=== PATIENT | male | born 1950 | race Caucasian/White ===

== ENCOUNTER 2019-12-15 14:14 | Inpatient (IN) | payer OTHER ==
[2019-12-15 19:33] VITALS: BMI 32.8
--- NOTE | 2019-12-15 20:26 | HP ---
COWS - Scale Resting Pulse: 1= [place] 81-100 Sweatin=Flushed/Facial Moisture Restless Observation: 1= Difficult to Sit Still Pupil Size: 1= Pupils >than Normal Bone or Joint Aches: 4=Acute Joint/Muscle Pain Runny Nose/ Eye Tearin= Nasal Congestion GI Upset > 30mins: 3= Vomiting/Diarrhea (vomitingg x 1, diarrhea x 2) Tremor Observation: 2= Slight Tremor Visible Yawning Observation: 1= 1-2x During Session Anxiety or Irritability: 2=Irritable/Anxious Goose Flesh Skin: 0=Smooth Skin COWS Score: 18 CIWA Score - Admission Criteria OASAS Guidelines: Admission for Medically Managed Detox: Requires at least one of the followin. CIWA greater than 12 2. Seizures within the past 24 hours 3. Delirium tremens within the past 24 hours 4. Hallucinations within the past 24 hours 5. Acute intervention needed for co occurring medical disorder 6. Acute intervention needed for co occurring psychiatric disorder 7. Severe withdrawal that cannot be handled at a lower level of care (continued vomiting, continued diarrhea, abnormal vital signs) requiring intravenous medication and/or fluids 8. Admitting History and Physical - Smoking History Smoking history: Former smoker Have you smoked in the past 12 months: No Admission ROS [facility] Chief Complaint: Heroin withdrawal symptoms Allergies/Adverse Reactions: Allergies Allergy/AdvReac Type Severity Reaction Status Date / Time No Known Allergies Allergy Verified 12/15/19 20:03 History of Present Illness: 69 years old male with 50 years of heroin dependence is seeking admission to detox. This is his first admission to [facility] and patient reports prior detoxifications, last at [facility]. He has medical history of bladder stone, hypertension, Hep C (treated), BPH and psych. history of anxiety and depression. He denies suicidal ideation at this time. He reports that overdosed in May 2019. Patient is retired, lives in an apartment with his girlfriend and denies legal issues. Confidential Drug Utilization Report Search Terms: catherinechristiana Beckett, 1950Search Date: 12/15/2019 20:22:27 PM The Drug Utilization Report below displays all of the controlled substance presc riptions, if any, that your patient has filled in the last twelve months. The information displayed on this report is compiled from pharmacy submissions to the Department, and accurately reflects the information as submitted by the pharmacies. Others' Prescriptions Patient Name: Catherine Hammond Date: 1950 Address: [address] [place] [id number]: Female Rx Written Rx Dispensed Drug Quantity Days Supply Prescriber Name Payment Method Dispenser 11/30/2019 12/01/2019 clonazepam 1 mg tablet 60 30 Luis Dallas () Insurance [facility] 11/29/2019 11/29/2019 clonazepam 0.5 mg tablet 60 30 Luis Dallas) [facility] * - Drugs marked with an asterisk are compound drugs. If the compound drug is made up of more than one controlled substance, then each controlled substance will be a separate row in the table. Exam Limitations: No Limitations - Ebola screening Have you traveled outside of the country in the last 21 days: No Have you had contact with anyone from an Ebola affected area: No Have you been sick,other than usual withdrawal symptoms: No Do you have a fever: No - Review of Systems Constitutional: Chills, Malaise, Night Sweats, Changes in sleep EENT: reports: No Symptoms Reported Respiratory: reports: No Symptoms reported Cardiac: reports: No Symptoms Reported GI: reports: Diarrhea, Poor Appetite, Poor Fluid Intake, Vomiting, Abdominal cramping : reports: No Symptoms Reported Musculoskeletal: reports: No Symptoms Reported Integumentary: reports: No Symptoms Reported Neuro: reports: Headache, Tremors Endocrine: reports: No Symptoms Reported Hematology: reports: No Symptoms Reported Psychiatric: reports: Mood/Affect Appropiate, Orientated x3 Other Systems: Reviewed and Negative Patient History - Patient Medical History Hx Anemia: No Hx Asthma: No Hx Chronic Obstructive Pulmonary Disease (COPD): No Hx Cancer: No Hx Cardiac Disorders: No Hx Congestive Heart Failure: No Hx Hypertension: Yes (Losartan) Hx Hypercholesterolemia: No Hx Pacemaker: No HX Cerebrovascular Accident: No Hx Seizures: No Hx Dementia: No Hx Diabetes: No Hx Gastrointestinal Disorders: No Hx Liver Disease: No Hx Genitourinary Disorders: Yes (BPH) Hx Sexually Transmitted Disorders: No Hx Renal Disease (ESRD): No Hx Thyroid Disease: No Hx Human Immunodeficiency Virus (HIV): No (Negative 2017) Hx Hepatitis C: Yes (Treated ) Hx Depression: Yes Hx Suicide Attempt: No (Denies suicidal ideation at this time) Hx Bipolar Disorder: No Hx Schizophrenia: No - Patient Surgical History Past Surgical History: Yes Hx Neurologic Surgery: No Hx Cataract Extraction: No Hx Cardiac Surgery: No Hx Lung Surgery: No Hx Abdominal Surgery: No Hx Appendectomy: No Hx Cholecystectomy: No Hx Genitourinary Surgery: Yes Hx Section: No Hx Orthopedic Surgery: Yes (Back surgery 2009) Hx Hysterectomy: No Other Surgical History: Tonsillectomy as a child - PPD History Previous Implant?: Yes Implanted On Prior [facility] Admission?: No PPD to be Administered?: Yes - Reproductive History Patient is a Female of Child Bearing Age (11 -55 yrs old): No (male) - Smoking Cessation Smoking history: Former smoker Have you smoked in the past 12 months: No Hx Chewing Tobacco Use: No Initiated information on smoking cessation: No - Substance & Tx. History Hx Alcohol Use: No Hx Substance Use: Yes Substance Use Type: Heroin, Prescribed (Klonopin) Hx Substance Use [facility]: [facility] - Substances abused Heroin Substance route: Inhalation Frequency: Daily Amount used: 6 bags Age of first use: 19 Date of last use: 12/15/19 Admission Physical Exam S - Vital Signs Vital Signs: Vital Signs - 24 hr 12/15/19 19:12 Temperature 97.5 F L Pulse Rate 90 Respiratory 18 Rate Blood Pressure 108/75 - Physical General Appearance: Yes: Moderate Distress, Tremorous, Irritable, Anxious HEENTM: Yes: Within Normal Limits Respiratory: Yes: Lungs Clear, Normal Breath Sounds, No Respiratory Distress Neck: Yes: Within Normal Limits Breast: Yes: Breast Exam Deferred Cardiology: Yes: Tachycardia Abdominal: Yes: Normal Bowel Sounds, Protuberent Genitourinary: Yes: Within Normal Limits Back: Yes: Normal Inspection Musculoskeletal: Yes: Back pain, Muscle Pain Extremities: Yes: Tremors Neurological: Yes: Within Normal Limits, Alert, Normal Mood/Affect Integumentary: Yes: Warm Lymphatic: Yes: Within Normal Limits - Diagnostic (1) Opioid dependence, uncomplicated Current Visit: Yes Status: Acute (2) Hypertension Current Visit: Yes Status: Chronic Qualifiers: Hypertension type: unspecified Qualified Code(s): I10 - Essential (primary) hypertension (3) BPH (benign prostatic hyperplasia) Current Visit: Yes Status: Chronic Qualifiers: Lower urinary tract symptom presence: unspecified whether lower urinary tract symptoms present Qualified Code(s): N40.0 - Benign prostatic hyperplasia without lower urinary tract symptoms (4) Bladder stones Current Visit: Yes Status: Chronic (5) Depression Current Visit: Yes Status: Chronic Qualifiers: Depression Type: unspecified Qualified Code(s): F32.9 - Major depressive disorder, single episode, unspecified (6) Anxiety Current Visit: Yes Status: Chronic Cleared for Admission [facility] - Detox or Rehab [facility] Level of Care: Medically Managed Detox Regimen/Protocol: Methadone Claeared for Rehab Admission: No Breathalyzer - Breathalyzer Breathalyzer: 0 Urine Drug Screen - Test Device Lot number: [id number] Expiration date: 02/18/21 - Control Is test valid?: Yes - Results Drug screen NEGATIVE: No Urine drug screen results: MELANIE-Cocaine, FEN-Fentanyl, MOP-Opiates, BZO- Benzodiazepines Inpatient Rehab Admission - Rehab Decision to Admit Inpatient rehab admission?: No
[2019-12-15] MEDS ORDERED: cloNIDine HCL 0.1 MG TABLET PO PRN (20:57)
[2019-12-15] MEDS ORDERED: ONDANSETRON *ODT* 4 MG TABLET SL ONE (20:57)
[2019-12-15] MEDS ORDERED: BISMUTH SUBSALICYLATE 524 MG/30 ML UD PO PRN (20:57)
[2019-12-15] MEDS ORDERED: MAGNESIUM CITRATE 300 ML BOTTLE PO PRN (20:57)
[2019-12-15] MEDS ORDERED: MAG HYDROX/AL HYDROX/SIMETH 30 ML UNIT-DOSE CUP PO PRN (20:57)
[2019-12-15] MEDS ORDERED: MENTHOL/PHENOL 1 EACH UD MM PRN (20:57)
[2019-12-15] MEDS ORDERED: ACETAMINOPHEN 325 MG TABLET (FP) PO PRN ×2 (20:57)
[2019-12-15] MEDS ORDERED: MAGNESIUM HYDROX 2400MG/30ML ORAL SUSPENSION 30 ML CUP PO PRN (20:57)
[2019-12-15] MEDS ORDERED: METHADONE HCL 10 MG TABLET (FOR DETOX USE ONLY) PO ONE (21:30)
[2019-12-15] MEDS ORDERED: TUBERCULIN PPD 5 TU/0.1ML VIAL ID ONE (22:44)
[2019-12-15] MEDS: hydrOXYzine PAMOATE 25 MG CAPSULE (FP) PO PRN (22:49)
[2019-12-15] MEDS: THIAMINE HCL 100 MG TABLET (FP) PO SCH (22:49)
[2019-12-15] MEDS: MELATONIN 5 MG TABLETS PO SCH (22:56)
[2019-12-16] MEDS ORDERED: METHADONE HCL 5 MG TABLET (FOR DETOX USE ONLY) ONE (08:51)
[2019-12-16] MEDS ORDERED: METHADONE HCL 10 MG TABLET (FOR DETOX USE ONLY) ONE (08:51)
[2019-12-16 09:39] LABS: HEMATOCRIT 37.8 % (35.4-49); HEMOGLOBIN 12.6 GM/dL (11.7-16.9); MCH 29.1 pg (25.7-33.7); MCHC 33.3 g/dl (32.0-35.9); MEAN CELL VOLUME 87.3 fl (80-96); MEAN PLT VOLUME 8.3 fl (7.5-11.1); PLATELET COUNT 181 K/MM3 (134-434); RBC 4.33 M/mm3 (4.00-5.60); RDW 14.1 % (11.9-15.9); WHITE BLOOD COUNT 8.3 K/mm3 (4.0-10.0)
[2019-12-16 09:53] LABS: ALBUMIN 3.4 g/dl (3.4-5.0); BILIRUBIN,TOTAL 0.6 mg/dL (0.2-1); BLOOD UREA NITROGEN 31.5 mg/dL (7-18); CALCIUM 8.8 mg/dL (8.5-10.1); POTASSIUM 4.1 mmol/L (3.5-5.1); TOT PROT 6.4 g/dl (6.4-8.2)
[2019-12-16] MEDS ORDERED: METHADONE (DETOX) 20 MG, METHADONE (DETOX) 5 MG PO ONE (10:00)
[2019-12-16] MEDS ORDERED: PATIENT'S OWN MEDICATION (NON-FORMULARY) (Losartan/Hydrochlorothiazide [Losartan-Hctz 100- PO SCH (10:00)
[2019-12-16] MEDS: HYDROCHLOROTHIAZIDE 12.5 MG CAPSULE (FP) PO SCH (10:28)
[2019-12-16] MEDS: PRENATAL VITAMINS W/ FOLIC ACID TABLET (FP) PO SCH (10:28)
[2019-12-16] MEDS: hydrOXYzine PAMOATE 25 MG CAPSULE (FP) PO PRN ×3 (10:30→23:23)
[2019-12-16] MEDS: LOSARTAN POTASSIUM 50 MG TABLET (FP) PO SCH (10:49)
--- NOTE | 2019-12-16 12:24 | CONSULT ---
[facility] Psychiatric Consult - Data Date of interview: 12/16/19 Admission source: [facility] Identifying data: Patient is a 69 year old single male, father of one, unemployed, domiciled, and is supported with SSI benefits. This is patient's first admission to detox at [facility]. Patient admitted to for opioid dependence. Substance Abuse History: Smoking Cessation. Smoking history: Former smoker. Have you smoked in the past 12 months: No. Hx Chewing Tobacco Use: No. Initiated information on smoking cessation: No. - Substance & Tx. History. Hx Alcohol Use: No. Hx Substance Use: Yes. Substance Use Type: Heroin, Prescribed (Klonopin). Hx Substance Use Treatment: Yes ([facility]). - Substances abused. Heroin. Substance route: Inhalation. Frequency: Daily. Amount used: 6 bags. Age of first use: 19. Date of last use: 12/15/19 Medical History: hypertension, BPH, Hep C (treated) Psychiatric History: Patient denies history of psychiatric hospitalization, outpatient psychiatric care, and suicide attempt. Patient states that he is receiving klonopin from his PCP. At present patient reports stable mood. Physical/Sexual Abuse/Trauma History: denies. Mental Status Exam - Mental Status Exam Alert and Oriented to: Time, Place, Person Cognitive Function: Good Patient Appearance: Well Groomed Mood: Hopeful Affect: Appropriate Patient Behavior: Appropriate, Cooperative Speech Pattern: Appropriate Voice Loudness: Normal Thought Process: Goal Oriented Thought Disorder: Not Present Hallucinations: Denies Suicidal Ideation: Denies Homicidal Ideation: Denies Insight/Judgement: Poor Sleep: Fair Appetite: Fair Muscle strength/Tone: Normal Gait/Station: Other (Gait not observed.) Psychiatric Findings - Problem List ([place] 1, 2,3) (1) Opioid dependence, uncomplicated Current Visit: Yes Status: Acute - Initial Treatment Plan Initial Treatment Plan: Psychoeducation provided. Detoxification in progress. Vistaril 25mg q4h ordered by admitting provider. Observation.
[2019-12-16] MEDS: IBUPROFEN 400 MG TABLET (FP) PO PRN ×2 (12:48→19:16)
--- NOTE | 2019-12-16 13:40 | PN ---
S COWS - Scale Resting Pulse: 0= [place] 80 or Below Sweatin= Beads of Sweat on Face Restless Observation: 1= Difficult to Sit Still Pupil Size: 0= Normal to Room Light Bone or Joint Aches: 2= Severe Diffuse Aches Runny Nose/ Eye Tearin= None GI Upset > 30mins: 0= None Tremor Observation of Outstretched Hands: 2= Slight Tremor Visible Yawning Observation: 1= 1-2x During Session Anxiety or Irritability: 2=Irritable/Anxious Goose Flesh Skin: 0=Smooth Skin COWS Score: 11 S Progress Note (SOAP) Subjective: c/o sweats, shakes, anxiety, and muscle aches. Objective: 12/16/19 13:40 Vital Signs 12/16/19 12/16/19 07:00 09:41 Temperature 97.7 F 98.1 F Pulse Rate 66 75 Respiratory 18 18 Rate Blood Pressure 107/72 109/64 O2 Sat by Pulse 96 Oximetry (%) Laboratory Last Values WBC 8.3 K/mm3 (4.0-10.0) 12/16/19 07:25 RBC 4.33 M/mm3 (4.00-5.60) 12/16/19 07:25 Hgb 12.6 GM/dL (11.7-16.9) 12/16/19 07:25 Hct 37.8 % (35.4-49) 12/16/19 07:25 MCV 87.3 fl (80-96) 12/16/19 07:25 MCH 29.1 pg (25.7-33.7) 12/16/19 07:25 MCHC 33.3 g/dl (32.0-35.9) 12/16/19 07:25 RDW 14.1 % (11.9-15.9) 12/16/19 07:25 Plt Count 181 K/MM3 (134-434) 12/16/19 07:25 MPV 8.3 fl (7.5-11.1) 12/16/19 07:25 Sodium 140 mmol/L (136-145) 12/16/19 07:35 Potassium 4.1 mmol/L (3.5-5.1) 12/16/19 07:35 Chloride 105 mmol/L (98-107) 12/16/19 07:35 Carbon Dioxide 28 mmol/L (21-32) 12/16/19 07:35 Anion Gap 8 MMOL/L (8-16) 12/16/19 07:35 BUN 31.5 mg/dL (7-18) H 12/16/19 07:35 Creatinine 1.0 mg/dL (0.55-1.3) 12/16/19 07:35 Est GFR (CKD-EPI)AfAm 87.37 12/16/19 07:35 Est GFR (CKD-EPI)NonAf 75.39 12/16/19 07:35 Random Glucose 104 mg/dL (74-106) 12/16/19 07:35 Calcium 8.8 mg/dL (8.5-10.1) 12/16/19 07:35 Total Bilirubin 0.6 mg/dL (0.2-1) 12/16/19 07:35 AST 17 U/L (15-37) 12/16/19 07:35 ALT 32 U/L (13-61) 12/16/19 07:35 Alkaline Phosphatase 61 U/L (45-117) 12/16/19 07:35 Total Protein 6.4 g/dl (6.4-8.2) 12/16/19 07:35 Albumin 3.4 g/dl (3.4-5.0) 12/16/19 07:35 Syphilis Serology Non-reactive (NONREACTIVE) 12/16/19 07:35 Labs noted. Assessment: 12/16/19 13:41 AOX3, in no acute respiratory distress. Full ROM, ambulating in the unit. Withdrawal symptoms. covid-19 test result pending. 12/16/19 13:42 12/16/19 13:43 Plan: continue detox.
--- NOTE | 2019-12-16 13:56 | EKG ---
Test Reason : Blood Pressure : / mmHG Vent. Rate : 063 BPM Atrial Rate : 063 BPM P-R Int : 174 ms QRS Dur : 110 ms QT Int : 452 ms P-R-T Axes : 061 016 035 degrees QTc Int : 462 ms NORMAL SINUS RHYTHM INCOMPLETE RIGHT BUNDLE BRANCH BLOCK POSSIBLE POSTERIOR INFARCT ABNORMAL ECG Confirmed by MD DARWIN, EMETERIO ([id number]) on 12/16/2019 1:56:25 PM Referred By: Confirmed By:EMETERIO GRANADOS MD
[2019-12-16] MEDS: MELATONIN 5 MG TABLETS PO SCH (22:33)
[2019-12-16] MEDS: THIAMINE HCL 100 MG TABLET (FP) PO SCH (22:34)
[2019-12-17] MEDS: hydrOXYzine PAMOATE 25 MG CAPSULE (FP) PO PRN ×5 (06:26→22:23)
[2019-12-17] MEDS: PRENATAL VITAMINS W/ FOLIC ACID TABLET (FP) PO SCH (09:25)
[2019-12-17] MEDS ORDERED: METHADONE HCL 10 MG TABLET (FOR DETOX USE ONLY) PO ONE (10:00)
[2019-12-17] MEDS: HYDROCHLOROTHIAZIDE 12.5 MG CAPSULE (FP) PO SCH (10:25)
[2019-12-17] MEDS: LOSARTAN POTASSIUM 50 MG TABLET (FP) PO SCH (10:25)
--- NOTE | 2019-12-17 16:31 | PN ---
BHS COWS - Scale Resting Pulse: 0= [place] 80 or Below Sweatin= Chills/Flushing Restless Observation: 0= Sits Still Pupil Size: 0= Normal to Room Light Bone or Joint Aches: 1= Mild Discomfort Runny Nose/ Eye Tearin= Runny Nose/Eyes GI Upset > 30mins: 2= Nausea/Diarrhea Tremor Observation of Outstretched Hands: 2= Slight Tremor Visible Yawning Observation: 0= None Anxiety or Irritability: 1=Feels Anxious/Irritable Goose Flesh Skin: 0=Smooth Skin COWS Score: 9 BHS Progress Note (SOAP) Subjective: Chills, runny nose Objective: 12/17/19 16:30 Last Vital Signs Temp Pulse Resp BP Pulse Ox 98.0 F 71 20 116/72 95 12/17/19 14:19 12/17/19 14:19 12/17/19 14:19 12/17/19 14:19 12/17/19 09:25 Laboratory Tests 12/15/19 12/16/19 12/16/19 22:00 07:25 07:35 WBC 8.3 RBC 4.33 Hgb 12.6 Hct 37.8 MCV 87.3 MCH 29.1 MCHC 33.3 RDW 14.1 Plt Count 181 MPV 8.3 Sodium Potassium Chloride Carbon Dioxide Anion Gap BUN Creatinine Est GFR (CKD-EPI)AfAm Est GFR (CKD-EPI)NonAf Random Glucose Calcium Total Bilirubin AST ALT Alkaline Phosphatase Total Protein Albumin Syphilis Serology Non-reactive COVID-19 (ROSANNA) Not detected 12/16/19 07:35 WBC RBC Hgb Hct MCV MCH MCHC RDW Plt Count MPV Sodium 140 Potassium 4.1 Chloride 105 Carbon Dioxide 28 Anion Gap 8 BUN 31.5 H Creatinine 1.0 Est GFR (CKD-EPI)AfAm 87.37 Est GFR (CKD-EPI)NonAf 75.39 Random Glucose 104 Calcium 8.8 Total Bilirubin 0.6 AST 17 ALT 32 Alkaline Phosphatase 61 Total Protein 6.4 Albumin 3.4 Syphilis Serology COVID-19 (ROSANNA) Labs reviewed: bun 31.5 (high) Assessment: 12/17/19 16:30 Withdrawal sxs Noted with azotemia Plan: Continue detox Azotemia: encourage PO water hydration
[2019-12-17] MEDS: THIAMINE HCL 100 MG TABLET (FP) PO SCH (22:23)
[2019-12-17] MEDS: MELATONIN 5 MG TABLETS PO SCH (22:23)
[2019-12-17] MEDS: METHOCARBAMOL 500 MG TABLET PO PRN (22:23)
[2019-12-18] MEDS ORDERED: METHADONE HCL 10 MG TABLET (FOR DETOX USE ONLY) ONE (09:48)
[2019-12-18] MEDS ORDERED: METHADONE HCL 5 MG TABLET (FOR DETOX USE ONLY) ONE (09:48)
[2019-12-18] MEDS ORDERED: METHADONE (DETOX) 10 MG, METHADONE (DETOX) 5 MG PO ONE (10:00)
[2019-12-18] MEDS: HYDROCHLOROTHIAZIDE 12.5 MG CAPSULE (FP) PO SCH (10:28)
[2019-12-18] MEDS: PRENATAL VITAMINS W/ FOLIC ACID TABLET (FP) PO SCH (10:29)
[2019-12-18] MEDS: LOSARTAN POTASSIUM 50 MG TABLET (FP) PO SCH (10:29)
[2019-12-18] MEDS: hydrOXYzine PAMOATE 25 MG CAPSULE (FP) PO PRN ×3 (10:30→19:25)
[2019-12-18] MEDS: METHOCARBAMOL 500 MG TABLET PO PRN (10:32)
--- NOTE | 2019-12-18 14:40 | PN ---
BHS COWS - Scale Resting Pulse: 0= [place] 80 or Below Sweatin= Chills/Flushing Restless Observation: 0= Sits Still Pupil Size: 0= Normal to Room Light Bone or Joint Aches: 4=Acute Joint/Muscle Pain Runny Nose/ Eye Tearin= None GI Upset > 30mins: 0= None Tremor Observation of Outstretched Hands: 1= Tremor [place], Not Seen Yawning Observation: 0= None Anxiety or Irritability: 2=Irritable/Anxious Goose Flesh Skin: 0=Smooth Skin COWS Score: 8 BHS Progress Note (SOAP) Subjective: anxiety chills body ache fatigiue Objective: 12/18/19 14:43 Vital Signs 12/18/19 12:32 Temperature 97.8 F Pulse Rate 72 Respiratory 18 Rate Blood Pressure 109/69 O2 Sat by Pulse 96 Oximetry (%) Laboratory Tests 12/15/19 12/16/19 12/16/19 22:00 07:25 07:35 WBC 8.3 RBC 4.33 Hgb 12.6 Hct 37.8 MCV 87.3 MCH 29.1 MCHC 33.3 RDW 14.1 Plt Count 181 MPV 8.3 Sodium Potassium Chloride Carbon Dioxide Anion Gap BUN Creatinine Est GFR (CKD-EPI)AfAm Est GFR (CKD-EPI)NonAf Random Glucose Calcium Total Bilirubin AST ALT Alkaline Phosphatase Total Protein Albumin Syphilis Serology Non-reactive COVID-19 (ROSANNA) Not detected 12/16/19 07:35 WBC RBC Hgb Hct MCV MCH MCHC RDW Plt Count MPV Sodium 140 Potassium 4.1 Chloride 105 Carbon Dioxide 28 Anion Gap 8 BUN 31.5 H Creatinine 1.0 Est GFR (CKD-EPI)AfAm 87.37 Est GFR (CKD-EPI)NonAf 75.39 Random Glucose 104 Calcium 8.8 Total Bilirubin 0.6 AST 17 ALT 32 Alkaline Phosphatase 61 Total Protein 6.4 Albumin 3.4 Syphilis Serology COVID-19 (ROSANNA) covid-19 not detected Assessment: 12/18/19 14:44 withdrawal sx Plan: cont detox increase po fluids maintain safety
[2019-12-18 20:09] LABS: URINE APPEARANCE CLEAR; URINE BILIRUBIN NEGATIVE (NEGATIVE); URINE COLOR YELLOW; URINE GLUCOSE (UA) NEGATIVE (NEGATIVE); URINE KETONE NEGATIVE (NEGATIVE); URINE LEUK ESTERASE NEGATIVE (NEGATIVE); URINE NITRITE NEGATIVE (NEGATIVE); URINE PROTEIN NEGATIVE (NEGATIVE); URINE UROBILINOGEN 0.2 mg/dL (0.2-1.0)
[2019-12-18] MEDS: THIAMINE HCL 100 MG TABLET (FP) PO SCH (21:35)
[2019-12-18] MEDS: MELATONIN 5 MG TABLETS PO SCH (21:35)
[2019-12-19] MEDS: hydrOXYzine PAMOATE 25 MG CAPSULE (FP) PO PRN ×3 (06:21→19:36)
[2019-12-19] MEDS ORDERED: METHADONE HCL 10 MG TABLET (FOR DETOX USE ONLY) PO ONE (10:00)
[2019-12-19] MEDS: PRENATAL VITAMINS W/ FOLIC ACID TABLET (FP) PO SCH (10:27)
[2019-12-19] MEDS: HYDROCHLOROTHIAZIDE 12.5 MG CAPSULE (FP) PO SCH (10:28)
[2019-12-19] MEDS: LOSARTAN POTASSIUM 50 MG TABLET (FP) PO SCH (10:28)
[2019-12-19] MEDS: IBUPROFEN 400 MG TABLET (FP) PO PRN (11:27)
--- NOTE | 2019-12-19 11:53 | PN ---
BHS COWS - Scale Resting Pulse: 0= [place] 80 or Below Sweatin= Streaming Sweat Restless Observation: 0= Sits Still Pupil Size: 0= Normal to Room Light Bone or Joint Aches: 4=Acute Joint/Muscle Pain Runny Nose/ Eye Tearin= None GI Upset > 30mins: 0= None Tremor Observation of Outstretched Hands: 1= Tremor [place], Not Seen Yawning Observation: 0= None Anxiety or Irritability: 1=Feels Anxious/Irritable Goose Flesh Skin: 0=Smooth Skin COWS Score: 10 BHS Progress Note (SOAP) Subjective: pt c/o chills intermittent sleep body aches Objective: 12/19/19 11:55 Vital Signs 12/19/19 12/19/19 05:46 11:23 Temperature 97.5 F L 97.5 F L Pulse Rate 65 73 Respiratory 18 Rate Blood Pressure 117/76 134/85 O2 Sat by Pulse 97 96 Oximetry (%) Laboratory Tests 12/15/19 12/16/19 12/16/19 22:00 07:25 07:35 WBC 8.3 RBC 4.33 Hgb 12.6 Hct 37.8 MCV 87.3 MCH 29.1 MCHC 33.3 RDW 14.1 Plt Count 181 MPV 8.3 Sodium Potassium Chloride Carbon Dioxide Anion Gap BUN Creatinine Est GFR (CKD-EPI)AfAm Est GFR (CKD-EPI)NonAf Random Glucose Calcium Total Bilirubin AST ALT Alkaline Phosphatase Total Protein Albumin Urine Color Urine Appearance Urine pH Ur Specific [place] Urine Protein Urine Glucose (UA) Urine Ketones Urine Blood Urine Nitrite Urine Bilirubin Urine Urobilinogen Ur Leukocyte Esterase Syphilis Serology Non-reactive COVID-19 (ROSANNA) Not detected 12/16/19 12/18/19 07:35 15:06 WBC RBC Hgb Hct MCV MCH MCHC RDW Plt Count MPV Sodium 140 Potassium 4.1 Chloride 105 Carbon Dioxide 28 Anion Gap 8 BUN 31.5 H Creatinine 1.0 Est GFR (CKD-EPI)AfAm 87.37 Est GFR (CKD-EPI)NonAf 75.39 Random Glucose 104 Calcium 8.8 Total Bilirubin 0.6 AST 17 ALT 32 Alkaline Phosphatase 61 Total Protein 6.4 Albumin 3.4 Urine Color Yellow Urine Appearance Clear Urine pH 7.0 Ur Specific [place] 1.014 Urine Protein Negative Urine Glucose (UA) Negative Urine Ketones Negative Urine Blood Negative Urine Nitrite Negative Urine Bilirubin Negative Urine Urobilinogen 0.2 Ur Leukocyte Esterase Negative Syphilis Serology COVID-19 (ROSANNA) covid-19 not detected Assessment: 12/19/19 11:56 withdrawal sx alert o x 3 nad oob ambulating but slow steady gait. Plan: cont detox increase po fluids maintain safety
[2019-12-19] MEDS: diazePAM 5 MG TABLET PO PRN ×3 (15:09→23:27)
[2019-12-19] MEDS: THIAMINE HCL 100 MG TABLET (FP) PO SCH (21:54)
[2019-12-19] MEDS: MELATONIN 5 MG TABLETS PO SCH (21:54)
[2019-12-20] MEDS ORDERED: METHADONE HCL 5 MG TABLET (FOR DETOX USE ONLY) PO ONE (06:00)
[2019-12-20] MEDS: diazePAM 5 MG TABLET PO PRN ×2 (06:10→10:05)
[2019-12-20] MEDS: hydrOXYzine PAMOATE 25 MG CAPSULE (FP) PO PRN (08:30)
--- NOTE | 2019-12-20 09:07 | DS ---
[facility] Detox Discharge Summary Admission Date: 12/15/19 Discharge Date: 12/20/19 - History Present History: Opioid Dependence Additional Comments: Pt has a PCP DR. Aguila Ford at [place], [place] to follow up with medical management. . Pertinent Past History: HTN BPH Bladder stones Depression Anxiety disorder - Physical Exam Results Vital Signs: Vital Signs Temperature 97.7 F 12/20/19 06:35 Pulse Rate 64 12/20/19 06:35 Respiratory Rate 16 12/20/19 06:35 Blood Pressure 139/89 12/20/19 06:35 O2 Sat by Pulse Oximetry (%) 95 12/20/19 06:35 Alert o x 3, but anxious nad oob ambulating with steady gait cardiac:s1 s2,rrr lungs:ctab abdomen;soft,+bs,nt,nd extremities:no edema,skin intact,normal color/tugor Pertinent Admission Physical Exam Findings: Laboratory Tests 12/15/19 12/16/19 12/16/19 22:00 07:25 07:35 WBC 8.3 RBC 4.33 Hgb 12.6 Hct 37.8 MCV 87.3 MCH 29.1 MCHC 33.3 RDW 14.1 Plt Count 181 MPV 8.3 Sodium Potassium Chloride Carbon Dioxide Anion Gap BUN Creatinine Est GFR (CKD-EPI)AfAm Est GFR (CKD-EPI)NonAf Random Glucose Calcium Total Bilirubin AST ALT Alkaline Phosphatase Total Protein Albumin Urine Color Urine Appearance Urine pH Ur Specific [place] Urine Protein Urine Glucose (UA) Urine Ketones Urine Blood Urine Nitrite Urine Bilirubin Urine Urobilinogen Ur Leukocyte Esterase Syphilis Serology Non-reactive COVID-19 (ROSANNA) Not detected 12/16/19 12/18/19 07:35 15:06 WBC RBC Hgb Hct MCV MCH MCHC RDW Plt Count MPV Sodium 140 Potassium 4.1 Chloride 105 Carbon Dioxide 28 Anion Gap 8 BUN 31.5 H Creatinine 1.0 Est GFR (CKD-EPI)AfAm 87.37 Est GFR (CKD-EPI)NonAf 75.39 Random Glucose 104 Calcium 8.8 Total Bilirubin 0.6 AST 17 ALT 32 Alkaline Phosphatase 61 Total Protein 6.4 Albumin 3.4 Urine Color Yellow Urine Appearance Clear Urine pH 7.0 Ur Specific [place] 1.014 Urine Protein Negative Urine Glucose (UA) Negative Urine Ketones Negative Urine Blood Negative Urine Nitrite Negative Urine Bilirubin Negative Urine Urobilinogen 0.2 Ur Leukocyte Esterase Negative Syphilis Serology COVID-19 (ROSANNA) - Treatment Hospital Course: Detox Protocol Followed, Detoxed Safely, Responded well, Discharged Condition Good, Rehab Referral Accepted Patient has Accepted a Rehab Referral to: [facility] - Medication Discharge Medications: Ambulatory Orders Clonazepam [Klonopin] 1 mg PO DAILY 12/15/19 Losartan/Hydrochlorothiazide [Losartan-Hctz 100-12.5 mg Tab] 1 each PO DAILY 12/15/19 - Diagnosis (1) Opioid dependence, uncomplicated Current Visit: Yes Status: Acute (2) BPH (benign prostatic hyperplasia) Current Visit: Yes Status: Chronic Qualifiers: Lower urinary tract symptom presence: unspecified whether lower urinary tract symptoms present Qualified Code(s): N40.0 - Benign prostatic hyperplasia without lower urinary tract symptoms (3) Bladder stones Current Visit: Yes Status: Chronic (4) Hypertension Current Visit: Yes Status: Chronic Qualifiers: Hypertension type: unspecified Qualified Code(s): I10 - Essential (primary) hypertension (5) Anxiety Current Visit: Yes Status: Chronic (6) Depression Current Visit: Yes Status: Chronic Qualifiers: Depression Type: unspecified Qualified Code(s): F32.9 - Major depressive disorder, single episode, unspecified - AMA Did Patient Leave Against Medical Advice: No
[2019-12-20] MEDS: PRENATAL VITAMINS W/ FOLIC ACID TABLET (FP) PO SCH (10:05)
[2019-12-20] MEDS: LOSARTAN POTASSIUM 50 MG TABLET (FP) PO SCH (10:37)
[2019-12-20] MEDS: HYDROCHLOROTHIAZIDE 12.5 MG CAPSULE (FP) PO SCH (10:37)
[2019-12-20 10:52] VITALS: BP 115/73; PULSE 93; TEMP 97.5
== END 2019-12-20 11:15 | disposition home or self-care (01) | DRG 897 ==
LOC: YASAS 14:14 → Y5N DETOX 21:16
PROVIDERS: ADMIT Allergy & Immunology; ATTEND Allergy & Immunology
PROC: HZ2ZZZZ Detoxification Services for Substance Abuse Treatment (ICD-10-PCS; principal; 2019-12-15)
DX: F11.23 Opioid dependence with withdrawal (principal); F13.20 Sedative, hypnotic or anxiolytic dependence, uncomplicated; F41.8 Other specified anxiety disorders; F32.9 Major depressive disorder, single episode, unspecified; I10 Essential (primary) hypertension; N40.0 Benign prostatic hyperplasia without lower urinary tract symptoms; R79.89 Other specified abnormal findings of blood chemistry; Z87.442 Personal history of urinary calculi
CPT/HCPCS: 36415; 80053; 81003; 85027; 86780; 93005; 93010; U0003